=== PATIENT | female | born 2000 | race African-American/Black ===

== ENCOUNTER 2018-03-25 10:59 | Inpatient (IN) ==
[2018-03-25 12:35] LABS: Basophils % 0.3 % (0.0-0.8); Eosinophils # 0.1 10*3/uL (0.0-0.87); Eosinophils % 0.7 % (0.00-10.9); Hematocrit 34.3 VOL% (35.7-47.0); Hemoglobin 11.2 GM/DL (12.0-16.0); Immature Granulocytes % 1.1 %; Immature Granulocytes Absolute 0.08 #; Lymphocytes # 2.4 10*3/uL (1.4-4.0); Lymphocytes % 31.5 % (21.3-54.2); Mean Corpuscular HGB Conc 32.7 GM/DL (32-36); Mean Corpuscular Hemoglobin 29 PG (27-34); Mean Corpuscular Volume 87.9 FL (87-102); Mean Platelet Volume 12.1 FL (9.6-12.0); Monocytes # 1.1 10*3/uL (0.11-0.8); Monocytes % 14.8 % (1.7-12.7); Neutrophils # 3.9 10*3/uL (1.4-7.4); Neutrophils % 51.6 % (38.7-73.9); Platelet Count 125 T/CUMM (130-400); Red Cell Distribution Width 14.6 % (9.3-17.3); White Blood Count 7.5 T/CUMM (4-12)
[2018-03-25 12:46] LABS: INR 0.9; PT Patient Result 9.8 SECS; Partial Thromboplastin Time 28.9 SECS (0-40)
[2018-03-25 13:09] LABS: Alanine Aminotransferase 18 U/L (13-56); Albumin 2.7 G/DL (3.4-5.0); Alkaline Phosphatase 174 U/L (45-117); Aspartate Amino Transferase 28 U/L (0-37); Bilirubin,Total < 0.39 MG/DL (0.2-1.0); Blood Urea Nitrogen 2 MG/DL (7-18); Calcium 8.5 MG/DL (8.5-10.1); Glucose 70 MG/DL (74-106); Osmolality,Calculated 276.1 MOS/KG (273-304); Potassium 3.2 MMOL/L (3.5-5.1); Sodium 142 MMOL/L (136-145); Total Protein 6.5 G/DL (6.4-8.3); Uric Acid 3.4 MG/DL (2.6-6.0)
[2018-03-25] MEDS ORDERED: ONDANSETRON 4 MG/2 ML VIAL IV PRN (13:25)
[2018-03-25] MEDS ORDERED: BUTORPHANOL 2 MG/ML VIAL IV PRN (13:25)
[2018-03-26] MEDS: LACTATED RINGERS 1,000 ML IV SCH ×2 (06:25→13:00)
[2018-03-26] MEDS ORDERED: OXYTOCIN/LR 20 UNIT/1,000 ML BAG IV SCH (07:00)
[2018-03-26] MEDS ORDERED: CITRIC ACID/SODIUM CITRATE 30 ML UDCUP PO ONE (12:18)
[2018-03-26] MEDS ORDERED: hydrOXYzine HCL 25 MG/1 ML VIAL IM PRN (12:18)
[2018-03-26] MEDS ORDERED: LACTATED RINGERS 1,000 ML IV ONE (12:18)
[2018-03-26] MEDS ORDERED: ONDANSETRON 4 MG/2 ML VIAL IV ONE (12:18)
[2018-03-26] MEDS ORDERED: ePHEDrine 50 MG/ML AMP IV PRN ×2 (12:18)
[2018-03-26] MEDS ORDERED: diphenhydrAMINE 50 MG/1 ML VIAL IV PRN ×2 (12:18)
[2018-03-26] MEDS ORDERED: FAMOTIDINE 20 MG/2 ML VIAL IV ONE (12:18)
[2018-03-26] MEDS ORDERED: NALOXONE 0.4 MG/ML VIAL IV PRN (12:18)
[2018-03-26] MEDS ORDERED: PROMETHAZINE 25 MG/1 ML VIAL IM ONE (12:18)
[2018-03-26] MEDS ORDERED: fentaNYL 2 MCG/ROPIV 0.2% EPID 100 ML EPIDURAL SCH (12:30)
[2018-03-26] MEDS ORDERED: ACETAMINOPHEN 500 MG TABLET PO PRN (16:53)
[2018-03-26] MEDS ORDERED: ceFAZolin 3,000 MG in SYRINGE 1 EACH IV ONE (20:00)
[2018-03-26] MEDS ORDERED: RHO(D) IMMUNE GLOBULIN 300 MCG SYRINGE IM ONE (21:50)
[2018-03-26] MEDS ORDERED: ACETAMINOPHEN 325 MG TABLET PO PRN (21:50)
[2018-03-26] MEDS ORDERED: OXYTOCIN/LR 20 UNIT/1,000 ML BAG IV ONE (21:50)
[2018-03-26] MEDS ORDERED: LACTATED RINGERS 1,000 ML IV SCH (22:00)
[2018-03-26] MEDS ORDERED: fentaNYL 100 MCG/2 ML VIAL ONE (22:04)
[2018-03-26] MEDS ORDERED: MORPHINE 10 MG/10 ML VIAL ONE (22:04)
[2018-03-26] MEDS ORDERED: PHENYLEPHRINE 1 MG/10 ML SYRINGE IV ONE (22:05)
[2018-03-26] MEDS ORDERED: LIDOCAINE MPF 2% /EPI 20 ML VIAL ONE (22:05)
[2018-03-26] MEDS ORDERED: BUPIVACAINE SPINAL 0.75% 2 ML AMP SPINAL ONE (22:06)
[2018-03-26] MEDS ORDERED: MEPERIDINE 50 MG/1 ML VIAL IM PRN (22:18)
[2018-03-26] MEDS ORDERED: PROMETHAZINE 25 MG/1 ML VIAL IM PRN (22:19)
[2018-03-26] MEDS ORDERED: MIDAZOLAM 2 MG/2 ML VIAL ONE (22:22)
[2018-03-27] MEDS: ceFAZolin 1,000 MG in SYRINGE 1 EACH IV SCH ×2 (04:35→12:00)
[2018-03-27 06:00] LABS: Basophils % 0.1 % (0.0-0.8); Hematocrit 31.1 VOL% (35.7-47.0); Hemoglobin 9.6 GM/DL (12.0-16.0); Immature Granulocytes % 0.4 %; Immature Granulocytes Absolute 0.03 #; Mean Corpuscular HGB Conc 30.9 GM/DL (32-36); Mean Corpuscular Hemoglobin 28 PG (27-34); Mean Corpuscular Volume 90.7 FL (87-102); Monocytes # 0.8 10*3/uL (0.11-0.8); Monocytes % 8.8 % (1.7-12.7); Neutrophils # 6.8 10*3/uL (1.4-7.4); Neutrophils % 78.7 % (38.7-73.9); Platelet Count 106 T/CUMM (130-400); Red Blood Count 3.43 MC/CUMM (3.8-5.5); Red Cell Distribution Width 14.6 % (9.3-17.3); White Blood Count 8.6 T/CUMM (4-12)
[2018-03-27 06:22] LABS: Hypochromasia 1+; Platelet Estimate Decreased
[2018-03-27] MEDS: MAGNESIUM HYDROXIDE SUSP 30 ML UDCUP PO PRN ×2 (09:14→21:59)
[2018-03-27] MEDS: MULTIVITAMIN (PRENATAL) TABLET PO SCH (09:14)
[2018-03-27] MEDS: DOCUSATE SODIUM 100 MG CAPSULE PO SCH ×2 (09:14→21:58)
[2018-03-27] MEDS: SIMETHICONE CHEW 80 MG TABLET PO PRN ×2 (09:14→21:59)
[2018-03-27] MEDS: IBUPROFEN 800 MG TABLET PO PRN (17:04)
[2018-03-27 18:36] LABS: Apearance,Urine CLEAR (Clear); Bilirubin,Urine Negative (Negative); Blood, Urine Small mg/dL (Negative); Glucose,Urine (UA) 50 mg/dL (Negative); Ketones,Urine 20 mg/dL (Negative); Mucus,Urine Occasional /LPF (Occasional); Nitrite,Urine Negative (Negative); Protein,Urine Negative; RBC,Urine 2 /HPF (0-4); Squamous Epithelial Cell,Urine Occasional /HPF (0-10); Urine Color Yellow (Yellow); Urine Specific Gravity 1.011 (1.001-1.035); Urine Urobilinogen < 2.0 EU/DL (0.2-1.0); WBC,Urine 2 /HPF (0-6)
[2018-03-27] MEDS: cefTRIAXone 2,000 MG in SYRINGE 1 EACH IV SCH (23:38)
[2018-03-28 08:11] LABS: Albumin 1.9 G/DL (3.4-5.0); Bilirubin,Total 0.6 MG/DL (0.2-1.0); Calcium 8.4 MG/DL (8.5-10.1); Osmolality,Calculated 279.3 MOS/KG (273-304); Potassium 3.2 MMOL/L (3.5-5.1); Total Protein 5.5 G/DL (6.4-8.3)
[2018-03-28 08:45] LABS: Basophils % 0.2 % (0.0-0.8); Eosinophils % 0.2 % (0.00-10.9); Hematocrit 31.2 VOL% (35.7-47.0); Hemoglobin 10.2 GM/DL (12.0-16.0); Immature Granulocytes Absolute 0.13 #; Lymphocytes % 15.2 % (21.3-54.2); Mean Corpuscular HGB Conc 32.7 GM/DL (32-36); Mean Corpuscular Hemoglobin 29 PG (27-34); Mean Corpuscular Volume 88.4 FL (87-102); Mean Platelet Volume 10.9 FL (9.6-12.0); Monocytes # 0.9 10*3/uL (0.11-0.8); Monocytes % 6.5 % (1.7-12.7); Neutrophils % 76.9 % (38.7-73.9); Platelet Count 126 T/CUMM (130-400); Red Blood Count 3.53 MC/CUMM (3.8-5.5); Red Cell Distribution Width 14.8 % (9.3-17.3)
[2018-03-28 09:22] LABS: Band Neutrophils 3 % (0-10); Hypochromasia 1+; Lymphocytes 16 % (20-55); Ovalocytes Slight; Platelet Estimate Normal; Segmented Neutrophils 79 % (50-85); Total Cells Counted 100
[2018-03-28] MEDS: MULTIVITAMIN (PRENATAL) TABLET PO SCH (09:49)
[2018-03-28] MEDS: AZITHROMYCIN 250 MG TABLET PO SCH (09:49)
[2018-03-28] MEDS: SIMETHICONE CHEW 80 MG TABLET PO PRN ×2 (09:50→20:36)
[2018-03-28] MEDS: POTASSIUM CHLORIDE 20 MEQ TABLET PO SCH ×3 (09:50→18:42)
[2018-03-28] MEDS: IBUPROFEN 800 MG TABLET PO PRN ×2 (09:50→20:36)
[2018-03-28] MEDS: DOCUSATE SODIUM 100 MG CAPSULE PO SCH ×2 (09:50→20:36)
[2018-03-28] MEDS: MAGNESIUM HYDROXIDE SUSP 30 ML UDCUP PO PRN (20:36)
[2018-03-28] MEDS: cefTRIAXone 2,000 MG in SYRINGE 1 EACH IV SCH (22:20)
[2018-03-29 08:18] VITALS: BP 141/89
[2018-03-29] MEDS: DOCUSATE SODIUM 100 MG CAPSULE PO SCH (09:34)
[2018-03-29] MEDS: AZITHROMYCIN 250 MG TABLET PO SCH (09:34)
[2018-03-29] MEDS: MULTIVITAMIN (PRENATAL) TABLET PO SCH (09:34)
== END 2018-03-29 13:50 | disposition home or self-care (01) | DRG 765 ==
LOC: N.ULTRA 10:59 → N.LD 11:01 → N.OB 03-27 01:00
PROVIDERS: ADMIT Obstetrics & Gynecology; ATTEND Obstetrics & Gynecology
PROC: LDCSECT (ICD-10-PCS; 2018-03-26 21:00)